=== PATIENT | male | born 1985 | race Caucasian/White ===

== ENCOUNTER 2019-09-11 18:18 | Emergency (ER) | payer BC, SELFPAY ==
[2019-09-11] VITALS (7 sets, daily range): BP systolic 152–163; BP diastolic 101–122; PULSE 91–112; RESP 16–18; TEMP 36.4–36.7; O2SAT 93–96; BMI 32.8
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
[2019-09-11] MEDS: fentaNYL 50 mcg/mL INJ 2mL IVP (18:57)
[2019-09-11] MEDS: sodium chloride 0.9% 1,000 ML 999 ML IV (18:57)
--- NOTE | 2019-09-11 19:10 | PC.NURSE ---
report received from DAVID Jeffries and care transferred to DAVID Rodríguez
[2019-09-11 19:42] LABS: Add Urine Microscopic? NO
[2019-09-11 19:51] LABS: Bilirubin Urine Neg (NEGATIVE); Blood Urine Neg (Negative); Glucose Urine UA Norm (Normal); Ketones Urine Negative (Negative); Leukocyte Esterase Urine Negative (Negative); Nitrate Urine Negative (Negative); Protein Urine Neg (Negative); Urine Appearance Clear (CLEAR); Urine Color Straw (Yellow); Urobilinogen Urine Norm (Negative); pH Urine 5 (5-7)
--- NOTE | 2019-09-11 19:56 | PC.NURSE ---
CERVICAL SPINE COLLAR REMOVED BY NURSE AFTER HCP WRITTEN ORDER TO DO SO
== END 2019-09-11 20:30 | disposition home or self-care (01) ==
PROVIDERS: Emergency Provider Emergency Medicine; Family Provider Family Medicine
DX: S13.4XXA Sprain of ligaments of cervical spine, initial encounter (principal); S50.12XA Contusion of left forearm, initial encounter; V89.2XXA Person injured in unspecified motor-vehicle accident, traffic, initial encounter
CPT/HCPCS: 70450; 70486; 72125; 73000; 73030; 73060; 73090; 81003; 96360; 96374; 99282; J3010; J7030

== ENCOUNTER 2019-09-24 15:35 | Outpatient (CLI) | payer BC, SELFPAY ==
--- NOTE | 2019-09-24 | XR_ITS ---
WS: [id number] Left elbow, 3 views, 09/24/2019 Clinical Data: ELBOW PAIN Comparison: None. Findings: No fractures or dislocations are seen. The radial head is normal. The soft tissues are unremarkable. XR/XR elbow LT min 3V* [id number] Impression: Negative left elbow.
--- NOTE | 2019-09-24 | CT_ITS ---
WS: [id number] CT HEAD TECHNIQUE: Noncontrast CT of the head obtained from the skullbase to the vertex. CLINICAL INFORMATION: CONCUSSION, VISION CHANGES COMPARISON: 1 17,020 DLP: 883.[address] scans at [facility] use at least one of these dose optimization techniques: automat ed exposure control; mA and/or kV adjustment per patient size (includes targeted exams where dose is matched to clinical indication); or iterative reconstruction. FINDINGS: No evidence of intracranial hemorrhage or mass effect. Ventricular system and basal cisterns are salas nt. No extra-axial fluid collections. No evidence of mass or mass effect. Normal sutton-white different iation. Small retention cyst left sphenoid sinus. Paranasal sinuses are otherwise well aerated. Mastoid air c ells are well aerated. CT/CT head wo con* [id number] IMPRESSION: 1. No evidence of intracranial hemorrhage or mass effect. 2. Normal sutton-white differentiation. 3. Small retention cyst left sphenoid sinus.
== END 2019-09-24 15:36 | disposition home or self-care (01) ==
LOC: RAD 15:39
PROVIDERS: Family Provider Family Medicine; Visit Provider Family Medicine
DX: S06.0X9A Concussion with loss of consciousness of unspecified duration, initial encounter (principal); M25.529 Pain in unspecified elbow; H53.9 Unspecified visual disturbance; R51 Headache; J34.1 Cyst and mucocele of nose and nasal sinus; X58.XXXA Exposure to other specified factors, initial encounter
CPT/HCPCS: 70450; 73080

== ENCOUNTER 2020-01-13 11:07 | Outpatient (CLI) | payer BC, SELFPAY ==
--- NOTE | 2020-01-13 11:13 | XRR_ITS ---
PROCEDURE INFORMATION: Exam: XR Left Tibia and Fibula Exam date and time: 01/13/2020 11:13 AM Age: 34 years old Clinical indication: Pain; Knee; Left; Additional info: Knee pain left TECHNIQUE: Imaging protocol: XR Left tibia and fibula. Views: 2 views. COMPARISON: No relevant prior studies available. FINDINGS: Bones/joints: Normal. Soft tissues: Normal. XR/XR tibia fibula LT 2V [id number] IMPRESSION: No acute findings.
== END 2020-01-13 11:08 | disposition home or self-care (01) ==
LOC: RAD 11:10
PROVIDERS: PCP Family Medicine; Visit Provider Family Medicine
DX: M25.562 Pain in left knee (principal)
CPT/HCPCS: 73590

== ENCOUNTER 2020-08-13 22:33 | Emergency (ER) | payer OTHER, SELFPAY ==
[2020-08-13 22:34] VITALS: BP 174/109; PULSE 91; RESP 20; TEMP 36.6; O2SAT 97; BMI 34.2
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
[2020-08-13] MEDS: amlodipine 10 mg Tablet PO (22:59)
[2020-08-13] MEDS: ketorolac 30 mg/mL INJ IVP (23:06)
[2020-08-13] MEDS: dexamethasone 4 mg/mL INJ 6 MG IVP (23:06)
[2020-08-13 23:07] VITALS: BP 146/103; PULSE 86; RESP 16; O2SAT 99
[2020-08-13] MEDS: diphenhydrAMINE 50 mg/mL SDV 1mL IVP (23:07)
[2020-08-13] MEDS: sodium chloride 0.9% 500 ML IV (23:16)
[2020-08-13 23:56] VITALS: BP 146/103; PULSE 80; RESP 16; TEMP 36.6; O2SAT 98
== END 2020-08-13 23:56 | disposition home or self-care (01) ==
PROVIDERS: Emergency Provider Nurse Practitioner Family; PCP Family Medicine
DX: R51.9 Headache, unspecified (principal)
CPT/HCPCS: 12345; 96361; 96374; 96375; 99283; J1100; J1200; J1885; J7040

== ENCOUNTER → 2023-06-26 10:50 | Outpatient (BNVA) | payer OTHER, SELFPAY | PROVIDERS: PCP Family Medicine; Visit Provider Family Medicine | DX: M25.511 Pain in right shoulder (principal) | CPT/HCPCS: 73030 ==

== ENCOUNTER 2023-08-02 09:14 | Outpatient (CLI) | payer OTHER, SELFPAY ==
--- NOTE | 2023-08-02 09:30 | MR_ITS ---
WS: [id number] MRI RIGHT SHOULDER NONCONTRAST TECHNIQUE: Sagittal T2, coronal T1, T2 and proton density imaging. Axial gradient PDE imaging. CLINICAL INFORMATION: shoulder pain, refractory post injury COMPARISON: None. FINDINGS: Moderate degenerative arthritis AC joint with mild fluid and edema. Slight downsloping acromion with subacromial spurring. Slight impingement on the distal supraspinatus. Tiny intrasubstance bursal surf eric tear distal supraspinatus deep to the acromion. Normal infraspinatus. Normal teres minor. Normal subscapularis. Biceps tendon appears intact within the bicipital groove. Intra-articular bicep s tendon appears intact. Tendinopathy distal subscapularis tendon. Normal glenoid. No dislocation. No other acute findings.a IMPRESSION: 1. Moderate joint arthritis AC joint with mild downsloping the acromion. Small amount of subacromial subdeltoid fluid. 2. Tiny bursal surface tear supraspinatus deep to the acromion. 3. Tendinopathy distal subscapularis tendon which appears intact. 4. Biceps tendon intact with the bicipital groove. 5. No other suspicious findings.
== END 2023-08-02 09:15 | disposition home or self-care (01) ==
LOC: RAD 09:14
PROVIDERS: PCP Family Medicine; Visit Provider Family Medicine
DX: M25.511 Pain in right shoulder (principal); M19.011 Primary osteoarthritis, right shoulder; M75.101 Unspecified rotator cuff tear or rupture of right shoulder, not specified as traumatic; T14.90XA Injury, unspecified, initial encounter; X58.XXXA Exposure to other specified factors, initial encounter; Y93.9 Activity, unspecified; Y92.9 Unspecified place or not applicable; Y99.9 Unspecified external cause status
CPT/HCPCS: 73221

== ENCOUNTER 2023-09-25 06:00 | Outpatient (RCR) | payer OTHER, SELFPAY | END 2023-09-25 23:59 | disposition home or self-care (01) | LOC: TPT 06:00 | PROVIDERS: Visit Provider Emergency Medicine | DX: M75.41 Impingement syndrome of right shoulder (principal); M75.42 Impingement syndrome of left shoulder | CPT/HCPCS: 97161 ==

== ENCOUNTER 2023-09-26 06:00 | Outpatient (RCR) | payer OTHER, SELFPAY | END 2023-10-24 23:59 | disposition home or self-care (01) | LOC: TPT 06:00 | PROVIDERS: Visit Provider Emergency Medicine | DX: M75.41 Impingement syndrome of right shoulder (principal); M75.42 Impingement syndrome of left shoulder | CPT/HCPCS: 97110 ==

== ENCOUNTER 2023-10-25 06:00 | Outpatient (RCR) | payer OTHER, SELFPAY | END 2023-11-24 23:59 | disposition home or self-care (01) | LOC: TPT 06:00 | PROVIDERS: Visit Provider Emergency Medicine | DX: M75.41 Impingement syndrome of right shoulder (principal); M75.42 Impingement syndrome of left shoulder | CPT/HCPCS: 97110 ==

== ENCOUNTER 2024-02-21 06:00 | Outpatient (RCR) | payer OTHER, SELFPAY | END 2024-02-23 23:59 | disposition home or self-care (01) | LOC: TPT 06:00 | PROVIDERS: PCP Family Medicine; Visit Provider Physician Assistant Surgical | DX: Z98.890 Other specified postprocedural states (principal) | CPT/HCPCS: 97162 ==

== ENCOUNTER 2024-02-24 06:00 | Outpatient (RCR) | payer OTHER, SELFPAY | END 2024-03-25 23:59 | disposition home or self-care (01) | LOC: TPT 06:00 | PROVIDERS: PCP Family Medicine; Visit Provider Physician Assistant Surgical | DX: Z98.890 Other specified postprocedural states (principal) | CPT/HCPCS: 97110; 97140 ==

== ENCOUNTER 2024-03-26 06:00 | Outpatient (RCR) | payer OTHER, SELFPAY | END 2024-04-25 23:59 | disposition home or self-care (01) | LOC: TPT 06:00 | PROVIDERS: PCP Family Medicine; Visit Provider Physician Assistant Surgical | DX: Z98.890 Other specified postprocedural states (principal) | CPT/HCPCS: 97110; 97140 ==